=== PATIENT | female | born 1960 | race Caucasian/White ===

== ENCOUNTER 2017-10-07 17:41 | Inpatient (IN) | payer OTHER ==
[~2017-10-07] VITALS: Ht 175.3 cm; Wt 69.0 kg
[2017-10-07 17:50] VITALS: BP 151/72; PULSE 69; RESP 17; TEMP 97.9; O2SAT 95
[2017-10-07] MEDS ORDERED: depression PO (17:55)
[2017-10-07] MEDS ORDERED: ONDANSETRON HCL 4 MG/2 ML VIAL IV PUSH ONE ×2 (18:00→18:15)
[2017-10-07] MEDS ORDERED: TETANUS/DIPHTHERIA TOXOID ADULT 0.5 ML VIAL IM ONE (18:00)
[2017-10-07] MEDS ORDERED: MORPHINE SULFATE 2 MG/ML INJ IV PUSH ONE ×2 (18:00→19:30)
[2017-10-07] MEDS ORDERED: SODIUM CHLORIDE 0.9% FLUSH 10 ML FLUSH IVF PRN (18:00)
[2017-10-07 18:08] VITALS: BP 183/72; PULSE 64; RESP 15; O2SAT 97
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
[2017-10-07 18:18] LABS: AUTOMATED NEUTROPHIL # 3.5 TH/MM3 (1.8-7.7); BASOPHIL % 0.5 % (0.0-2.0); EOSINOPHIL # 0.1 TH/MM3 (0-0.4); EOSINOPHIL % 2.3 % (0.0-4.0); HEMATOCRIT 40.3 % (35.0-46.0); HEMOGLOBIN 13.6 GM/DL (11.6-15.3); LYMPH % 25.8 % (9.0-44.0); LYMPHOCYTE # 1.6 TH/MM3 (1.0-4.8); MEAN CORPUSCULAR HEMOGLOBIN 31.1 PG (27.0-34.0); MEAN CORPUSCULAR HGB CONC 33.8 % (32.0-36.0); MEAN PLATELET VOLUME 8.4 FL (7.0-11.0); MONO % 12.6 % (0.0-8.0); MONOCYTE # 0.8 TH/MM3 (0-0.9); NEUT % 58.8 % (16.0-70.0); PLATELET COUNT 205 TH/MM3 (150-450); RED BLOOD COUNT 4.39 MIL/MM3 (4.00-5.30); RED CELL DISTRIBUTION WIDTH 13.2 % (11.6-17.2)
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
[2017-10-07] MEDS ORDERED: KETOROLAC TROMETHAMINE 30 MG/ML (IVP) VIAL IV PUSH ONE (19:15)
[2017-10-07] MEDS ORDERED: LIDOCAINE 2%/EPINEPHrine 1:100,000 20ML MDV NERV BLOCK ONE (19:15)
[2017-10-07] MEDS ORDERED: oxyCODONE/ACETAMINOPHEN 5 MG/325 MG TAB PO ONE (19:30)
[2017-10-07 19:36] LABS: ALBUMIN 3.9 GM/DL (3.4-5.0); AST (GOT) 23 U/L (15-37); BICARBONATE 28.3 MEQ/L (21.0-32.0); BLOOD UREA NITROGEN 17 MG/DL (7-18); CALCIUM 8.5 MG/DL (8.5-10.1); CHLORIDE 106 MEQ/L (98-107); CREATININE 0.79 MG/DL (0.50-1.00); GLOMERULAR FILTRATION RATE 75 ML/MIN (>89); GLUCOSE,RANDOM 103 MG/DL (74-106); SODIUM (NA) 140 MEQ/L (136-145)
[2017-10-07 19:38] LABS: ALT (GPT) 32 U/L (10-53)
[2017-10-07 19:39] LABS: ALKALINE PHOSPHATASE 97 U/L (45-117); TOTAL BILIRUBIN ADULT 0.4 MG/DL (0.2-1.0); TOTAL PROTEIN 7.5 GM/DL (6.4-8.2)
[2017-10-07 19:42] VITALS: BP 143/98; PULSE 61; RESP 16; O2SAT 99
[2017-10-07 20:34] VITALS: BP 134/75; PULSE 80; RESP 18; O2SAT 99
[2017-10-07] MEDS ORDERED: ASPIRIN 81 MG CHEW TAB CHEW ONE (21:00)
[2017-10-07] MEDS ORDERED: NITROGLYCERIN 0.4 MG SL 25 TABS/BTL SL PRN (21:15)
[2017-10-07] MEDS ORDERED: ACETAMINOPHEN/HYDROcodone 325 MG/5 MG TAB PO PRN (21:15)
[2017-10-07] MEDS ORDERED: SODIUM CHLORIDE 0.9% FLUSH 10 ML FLUSH IV FLUSH PRN (21:15)
[2017-10-07] MEDS ORDERED: MORPHINE SULFATE 4 MG/ML INJ IV PUSH PRN (21:15)
[2017-10-07] MEDS ORDERED: 1/2 NS + KCL 20 MEQ INJ 1,000 ML IV SCH (22:15)
[2017-10-07 22:55] VITALS: BP 117/57; PULSE 59; RESP 16; TEMP 98.7; O2SAT 97
[2017-10-08 02:42] VITALS: BP 120/60; PULSE 60; RESP 16; TEMP 98.7; O2SAT 97
[2017-10-08 02:42] LABS: MAGNESIUM 2.1 MG/DL (1.5-2.5)
[2017-10-08 03:07] LABS: CHOLESTEROL/ HDL RATIO 1.94 RATIO; FOLATE 16.4 NG/ML (3.1-17.5); FREE T4 0.89 NG/DL (0.76-1.46); HDL CHOLESTEROL 106.7 MG/DL (40.0-60.0)
[2017-10-08 03:12] LABS: TROPONIN I 2.68 NG/ML (0.02-0.05)
[2017-10-08 03:52] VITALS: PULSE 54
[2017-10-08 08:00] VITALS: PULSE 56
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
[2017-10-08] MEDS ORDERED: SODIUM CHLORIDE 0.9% FLUSH 10 ML FLUSH IV FLUSH SCH (09:00)
[2017-10-08] MEDS ORDERED: ASPIRIN 325 MG TAB PO SCH (09:00)
[2017-10-08 09:22] LABS: BILIRUBIN, URINE NEG (NEG); BLOOD, URINE NEG (NEG); GLUCOSE,URINE NEG (NEG); KETONE, URINE 10 mg/dL (NEG); MUCUS URINE FEW /lpf (OCC); NITRITE,URINE NEG (NEG); URINE COLOR YELLOW (YELLW/STRAW); URINE LEUKOCYTE ESTERASE TRACE (NEG)
[2017-10-08] MEDS: ACETAMINOPHEN 325 MG TAB PO PRN ×2 (09:31→16:43)
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
[2017-10-08 10:20] LABS: TROPONIN I 1.88 NG/ML (0.02-0.05)
[2017-10-08 11:13] LABS: PROTHROMBIN TIME - PATIENT 10.5 SEC (9.8-11.6)
[2017-10-08] MEDS ORDERED: MIDAZOLAM HCL 2 MG/2 ML VIAL ONE (12:22)
[2017-10-08] MEDS ORDERED: HEPARIN SODIUM - IV 10,000 UNITS/10 ML VIAL ONE (12:22)
[2017-10-08] MEDS ORDERED: NITROGLYCERIN INJ 5 ML ONE (12:22)
[2017-10-08] MEDS ORDERED: HEPARIN-NS/PF INJ 1,000 ML ONE (12:22)
--- NOTE | 2017-10-08 12:57 | CATHPROC ---
[facility] Report Study Information Study Number Admission Scheduled Start Study Start [id number] Oct 07 2017 9:17PM 10/08/2017 Oct 08 2017 12:12PM [place] Service Cardiac Catheterization Admit Source Facility Department Other [facility] Attorney Physician and Clinical Staff Initial Orlin [employer] Driver Cecilia Munoz ,BSN Recorder Madeline Kerns,PLANNING SUPERVISOR Scrub Logan, Cherie,SURFACE ROOM SHOP OPTICIAN TECH2 Procedures Performed Procedure Location (Site) Vessel Name Coronary Angiograms LCA Left Coronary Coronary Angiograms RCA Right Coronary L Heart Cath Equipment Time Voice Writing Reporter Description Size Mfg Part Number Used/Scraped TRANSDUCER, TRUWAVE [id number] 12:37 HOLLIS STEPHENSON * Used W/STOCKCOCK *[id number] *[id number] *[id number] 12:37 [employer] INDUSTRIES PACK, CCL CUSTOM * Used *[id number] 12:37 Vertra SUPPORT, ARTERIAL ADULT 43026 *[id number] Used [id number] 12:37 [employer] PACER PEN, SKIN DUAL W/ RULER * Used *[id number] BAND, RADIAL COMPRESSION TR [id number] 12:45 [email or web address] 24CM Used SHORT 24 *[id number] SHEATH, FR6 RADIAL PRELUDE 12:37 [email or web address] FR 6 [id number] Used EASE 11CM [id number] 12:37 [email or web address] WIRE, EXCHANGE 260CM 3MMJ 260CM Used *[id number] 12:37 [employer]COMED OMNIPAQUE, 350 MG, 150ML 150ML [id number] Used [id number] 12:37 [employer],WARM AIR CCL * Used *[id number] History: Allergies Allergy Reaction No Known Allergies History: Risk Factors Family History of Hypertension Dyslipidemia Previous [place] Previous Heart Failure Premature CAD No No No No No Prior Valve Prior PCI Prior CABG Surgery No No No Cerebrovascular Peripheral Artery Chronic Lung On Dialysis Diabetes Disease Disease Disease No No No No No History: Stress Tests Stress or Imaging Studies Performed No History: Other Current Smoker No Labs Hgb (g/dl) Hct (%) WBC (l/cumm) Platelets (thousands) 11.60-17.00 35.00-51.00 4.00-11.00 150.00-450.00 13.6 40.3 6 205 Glucose (mg/dl) BUN (mg/dl) Creatinine (mg/dl) BUN:Creatinine (1:x) 74.00-106.00 7.00-18.00 0.50-1.30 10.00-20.00 103 17 0.7 24.3 Na (meq/l) K (meq/l) 136.00-145.00 3.50-5.10 140 3.6 Troponin I (ng/ml) CPK (u/l) 0.02-0.05 26.00-308.00 1.8 170 Medication Medication Total Dose (Bolus/Oral) Medication Total Dosage/Unit 1% XYLOCAINE 20 mL FENTANYL 50 mcg HEPARIN 3000 units NTG (IC) 200 mcg VERSED 2 mg Medications (Bolus/Oral) Medication Time Given Dosage/Unit Administered By Reason VERSED 10/08/2017 12:33:38 PM 2 mg Cecilia Munoz 2 mg VERSED given in lab by eCcilia Munoz BSN via Peripheral IV. FENTANYL 10/08/2017 12:34:44 PM 50 mcg Cecilia Munoz 50 mcg FENTANYL given in lab by Cecilia Munoz BSN via Peripheral IV. 1% XYLOCAINE 10/08/2017 12:35:40 PM 20 mL Orlin Lord 20 mL 1% XYLOCAINE given in lab by Orlin Lord in Right Radial via Subcutaneous. NTG (IC) 10/08/2017 12:37:30 PM 200 mcg Orlin Lord 200 mcg NTG (IC) given by Orlin Lord via Intra-coronary. HEPARIN 10/08/2017 12:38:42 PM 3000 units Cecilia Munzo 3000 units HEPARIN given by Cecilia Munoz BSN via Peripheral IV. Medication (Drip) Medication Time Given Dosage/Unit Concentration/Unit Diluent (ml) Solution IV Solutions 10/08/2017 12:21:51 PM 50 mL (IV) 500 NaCl .9 Patient arrived on IV Solutions via Peripheral IV. Pump/Drip Flow using NaCl .9. Initial Case Assessment Cardiovascular HR NIBP Chest Pain 62 142/68 0 Edema Present Skin color Skin None Normal Warm Dry Circulatory - Right Pulses Dorsalis Pedis Femoral Radial 2 3 3 Scale (0,1,2,3,4,d) Circulatory - Left Pulses Dorsalis Pedis Femoral Radial 2 3 3 Scale (0,1,2,3,4,d) Neurological State Oriented to time-place- Alert Moves all extremities person Respiration - General Respiration Rate SpO2 (%) (B/min) 20 98 Final Case Assessment Cardiovascular HR NIBP Chest Pain 62 112/61 0 Edema Present Skin color Skin None Normal Warm Dry Circulatory - Right Pulses Dorsalis Pedis Femoral Radial 2 3 3 Scale (0,1,2,3,4,d) Circulatory - Left Pulses Dorsalis Pedis Femoral Radial 2 3 3 Scale (0,1,2,3,4,d) Neurological State Oriented to time-place- Alert Moves all extremities person Respiration - General Respiration Rate SpO2 (%) (B/min) 20 98 Chronological Log Time Study Chronological Log 12:12:42 Patient arrived via Bed. 12:12:43 Patient Name, D.O.B, / Armband Verified By R.N. 12:12:44 Consent signed by the physician and the patient and verified by the [employer] staff. 12:13:18 Verbal Stimulation=2 Physical Stimulation=2 Airway=2 Respiration=2 TOTAL=8. (0=absent, 1=li mited, 2=present) 12:13:56 Presedation assessment performed by [employer] Attorney RN. 12:14:05 Allens test performed on the left radial and ulnar artery. 12:14:09 Patient has been NPO for More than 6Hrs. 12:14:12 Skin Breakdown- None Vitals capture started with the following parameters, Patient=Adult, Interval=5 min, Initial Pr qivxsa=059 mmHg, 12:20:24 Deflation Rate=5 mmHg, Cuff placed on Left Arm 12:21:01 HR=57 bpm, JVNI=643/68 mmhg, IjE7=882.0 %, Resp=12 B/min, Pain=0, Jacqui=10, Lopez=2 12:21:36 A # 20 IV was noted in the Antecubital (left). Grade = 0 12:21:51 Patient arrived on IV Solutions via Peripheral IV. Pump/Drip Flow using NaCl .9. Assessment: Initial Case, HR=62 BPM, XXGT=229/68 mmhg, Chest Pain=0, Edema=None, Color=Normal, Skin = Warm, Dry Right Pulses: Gerson Ped=2, Femoral=3, Radial=3 12:22:12 Left Pulses: Gerson Ped=2, Femoral=3, Radial=3 Neurological: State=Alert, Ox3, BARRIOS Respiration: Resp=20 B/min, SpO2=98 % 12:23:19 Right Radial and groin(s) prepped with 2% chlorhexidine, and draped after a 3 min. waiting time. 12:26:41 HR=58 bpm, JBYR=146/61 mmhg, PhX9=550.0 %, Resp=12 B/min, Pain=0, Jacqui=10, Lopez=2 12:28:37 MD paged 12:29:43 Pressure channel 1 zeroed. 12:29:53 Reference ECG taken 12:31:03 HR=65 bpm, IHQG=715/69 mmhg, SpO2=97.0 %, Resp=10 B/min, Pain=0, Jacqui=10, Lopez=2 12:32:53 MD arrived. 12:32:56 The Physician was on time. 12:33:38 2 mg VERSED given in lab by Cecilia Munoz BSN via Peripheral IV. 12:34:44 50 mcg FENTANYL given in lab by Cecilia Munoz BSN via Peripheral IV. Time Out. Correct patient, correct procedure, correct physician, power injector loaded, with co ntrast with surgical team 12:35:25 present. Time Out Concurred by MD and individual staff in procedure. 12:35:38 Case Start 12:35:40 20 mL 1% XYLOCAINE given in lab by Orlin Lord in Right Radial via Subcutaneous. 12:35:55 Access site was Radial Artery. 12:36:06 HR=62 bpm, BYGO=034/66 mmhg, SpO2=95 %, Resp=13 B/min, Pain=0, Jacqui=10, Lopez=2 A SHEATH, FR6 RADIAL PRELUDE EASE 11CM FR 6 was advanced into the Fem Art (right) using the Per cutaneous 12:36:22 technique. 12:37:30 200 mcg NTG (IC) given by Orlin Lord via Intra-coronary. 12:37:58 In the Radial (right) the SHEATH, FR6 RADIAL PRELUDE EASE 11CM FR [address] by Orlin Lord. A JR 5.0 INFINITI CATHETER FR 6 was advanced over a wire. OMNIPAQUE, 350 MG, 150ML 150ML was us ed for 12:38:33 injections. 12:38:42 3000 units HEPARIN given by Cecilia Munoz BSN via Peripheral IV. Recorded Pressure: Ao, HR=59, Condition=Condition 1 12:39:02 (Aorta) Ao 110/58/81 12:39:24 The RCA was injected and visualized at various angles. OMNIPAQUE, 350 MG, 150ML 150ML used . 12:41:03 HR=69 bpm, XCHW=960/60 mmhg, SpO2=95.0 %, Resp=9 B/min, Pain=0, Jacqui=10, Lopez=2 After removing the current catheter a JL 4.0 INFINITI CATHETER FR 6 was advanced over a WIRE, E XCHANGE 260CM 12:41:03 3MMJ 260CM. 12:42:09 The LCA was injected and visualized at various angles. OMNIPAQUE, 350 MG, 150ML 150ML used . 12:43:40 Catheter was removed 12:46:26 Case End 12:46:33 HR=62 bpm, OQPG=636/62 mmhg, SpO2=95 %, Resp=11 B/min, Pain=0, Jacqui=10, Lopez=2 12:49:47 No case complications noted. 12:49:51 Cine recording checked. Radial Compression Device Used. 12 mLs of air placed in BAND, RADIAL COMPRESSION TR SHORT 24 24 CM. Affected 12:49:57 hand 97 % O2 saturation. 12:50:44 A Left Heart Cath was performed. 12:51:01 Patient moved to stretcher 12:51:36 SUPC=466/61 mmhg, SpO2=96.0 %, Pain=0, Jacqui=10, Lopez=2 12:51:55 Vitals capture stopped. Assessment: Final Case, HR=62 BPM, PBXH=260/61 mmhg, Chest Pain=0, Edema=None, Color=Normal, Sk in = Warm, Dry Right Pulses: Gerson Ped=2, Femoral=3, Radial=3 12:52:11 Left Pulses: Gerson Ped=2, Femoral=3, Radial=3 Neurological: State=Alert, Ox3, BARRIOS Respiration: Resp=20 B/min, SpO2=98 % End Study - Contrast Media Used In Study Contrast Total Opened (mL) Total Used (mL) Total Wasted (mL) Omnipaque 20 20 0 End Study - Maximum Contrast Load Max Contrast Load (mL) 492.9 End Study - Radiation Exposure Fluoro Time (minutes) 2.2 End Study - Patient Disposition Complications Transferred To No [employer] Attorney Holding
--- NOTE | 2017-10-08 12:59 | MA ---
cc: SADE LANCE DATE 10/08/2017 PROCEDURE PERFORMED 1. Fluoroscopy with interpretation. 2. Coronary angiography. 3. Left heart catheterization. METHOD The risks, benefits and alternatives were discussed with the patient. The patient understood and consented to the procedure. PROCEDURE The patient was brought into the Catheterization Lab and placed on the catheterization table. The patient's right wrist was prepped and draped in sterile fashion. The right wrist was anesthetized with 2% lidocaine. The right radial artery was cannulated and a 6-Macedonian, 7-cm sheath was placed without difficulty. LEFT HEART CATHETERIZATION Intraventricular hemodynamics measured at 110/5 mmHg. CORONARY ANGIOGRAPHY 1. The left main coronary is angiographically normal. 2. The left anterior descending coronary and diagonal branch are angiographically normal. 3. The left circumflex is angiographically normal, gives rise to an obtuse marginal branch. 4. The right coronary is a dominant vessel giving rise to a posterior descending branch. The right coronary is angiographically normal. CONCLUSIONS 1. Angiographically normal coronary arteries. 2. Normal left-sided filling pressures. PLAN We will have to have a discussion with the patient and family to decide if any further workup as indicated. We will follow up on 2-D echocardiogram. MD ROSALINDA Kaba/MEGAN /12:43 PM /12:48 PM
--- NOTE | 2017-10-08 13:02 | ECHRPT ---
Indication: cp CONCLUSIONS Normal left ventricular size. The left ventricular systolic function is normal with an estimated ejection fraction in the range of 55-60%. Normal left ventricular size. The left ventricular systolic function is normal with an estimated ejection fraction in the range of 55-60%. Mild mitral valve regurgitation. No aortic valve regurgitation. There is mild tricuspid valve regurgitation. The estimated pulmonary arterial pressure is 47.2 mmHg. BP: / HR: Rhythm: MEASUREMENTS (Male / Female) Normal Values Technical Quality:Good 2D ECHO LV Diastolic Diameter PLAX 4.3 cm 4.2 - 5.9 / 3.9 - 5.3 cm LV Systolic Diameter PLAX 3.3 cm IVS Diastolic Thickness 1.0 cm 0.6 - 1.0 / 0.6 - 0.9 cm LVPW Diastolic Thickness 1.0 cm 0.6 - 1.0 / 0.6 - 0.9 cm LV Relative Wall Thickness 0.5 RV Internal Dim ED PLAX 2.9 cm M-MODE Aortic Root Diameter MM 2.6 cm LA Systolic Diameter MM 3.4 cm LA Ao Ratio MM 1.3 AV Cusp Separation MM 2.1 cm DOPPLER Mitral E Point Velocity 71.6 cm/s Mitral A Point Velocity 70.6 cm/s Mitral E to A Ratio 1.0 LV E' Lateral Velocity 10.2 cm/s Mitral E to LV E' Lateral Ratio 7.0 LV E' Septal Velocity 7.4 cm/s Mitral E to LV E' Septal Ratio 9.7 TR Peak Velocity 305.0 cm/s TR Peak Gradient 37.2 mmHg Right Atrial Pressure 10.0 mmHg Pulmonary Artery Systolic Pressu 47.2 mmHg Right Ventricular Systolic Press 47.2 mmHg FINDINGS LEFT VENTRICLE Normal left ventricular size. The left ventricular systolic function is normal with an estimated ejection fraction in the range of 55-60%. RIGHT VENTRICLE Normal right ventricular size and systolic function. LEFT ATRIUM The left atrial size is normal. RIGHT ATRIUM The right atrial size is normal. ATRIAL SEPTUM Normal atrial septal thickness without atrial level shunting by limited color doppler interrogation. AORTA The aortic root and proximal ascending aorta are normal in size on limited imaging. MITRAL VALVE Structurally normal mitral valve. Mild mitral valve regurgitation. AORTIC VALVE Trileaflet aortic valve. No aortic valve regurgitation. TRICUSPID VALVE Structurally normal tricuspid valve. There is mild tricuspid valve regurgitation. The estimated pulmonary arterial pressure is 47.2 mmHg. PULMONARY VALVE No pulmonary valve regurgitation or stenosis. VESSELS The inferior vena cava is normal in size. PERICARDIUM No pericardial effusion. Orlin Lord MD, FACC (Electronically Signed) Final Date:08 October 2017 13:02
[2017-10-08] MEDS ORDERED: IOHEXOL 350 MG/ML 50 ML BTL (for Cath Lab) OTHER ONE (14:37)
--- NOTE | 2017-10-08 15:08 | EKG ---
Date Performed: 10/08/2017 Time Performed: 02:32:57 PTAGE: 57 years EKG: SINUS BRADYCARDIA POSSIBLE RIGHT VENTRICULAR CONDUCTION DELAYpt Since previous tracing, no significant change noted BORDERLINE ECG PREVIOUS TRACING : 10/07/2017 20.33 DOCTOR: Jatin Pradhan Interpretating Date/Time 10/08/2017 15:07:47
--- NOTE | 2017-10-08 15:41 | EKG ---
Date Performed: 10/07/2017 Time Performed: 20:33:18 PTAGE: 57 years EKG: SINUS BRADYCARDIA POSSIBLE RIGHT VENTRICULAR CONDUCTION DELAY BORDERLINE ECG NO PREVIOUS TRACING DOCTOR: aJtin Pradhan Interpretating Date/Time 10/08/2017 15:39:32
[2017-10-08] MEDS ORDERED: TYLE325T PO (16:49)
--- NOTE | 2017-10-09 14:42 | EKG ---
Date Performed: 10/08/2017 Time Performed: 10:07:06 PTAGE: 57 years EKG: SINUS BRADYCARDIA POSSIBLE RIGHT VENTRICULAR CONDUCTION DELAY BORDERLINE ECG Since PREVIOUS TRACING , no significant change noted PREVIOUS TRACIN10/08/2017 02.32 DOCTOR: Arabelal Herrera Interpretating Date/Time 10/09/2017 14:41:14
== END 2017-10-08 17:45 | disposition home or self-care (01) | DRG 287 ==
LOC: NEPE 17:41 → NEDA 21:17 → NEPHCDU 22:35 → HCIS 10-08 11:36 → OBSVTOIN 10-08 13:52 → HCIS 10-08 17:45
PROVIDERS: ADMIT Hospitalist; ATTEND Hospitalist
PROC: 0HQ1XZZ Repair Face Skin, External Approach (ICD-10-PCS; 2017-10-07)
PROC: 4A023N7 Measurement of Cardiac Sampling and Pressure, Left Heart, Percutaneous Approach (ICD-10-PCS; 2017-10-08)
PROC: B2111ZZ Fluoroscopy of Multiple Coronary Arteries using Low Osmolar Contrast (ICD-10-PCS; principal; 2017-10-08 11:00)
DX: R55 Syncope and collapse (principal); S01.111A Laceration without foreign body of right eyelid and periocular area, initial encounter; S01.81XA Laceration without foreign body of other part of head, initial encounter; R74.8 Abnormal levels of other serum enzymes; X58.XXXA Exposure to other specified factors, initial encounter; F32.9 Major depressive disorder, single episode, unspecified
CPT/HCPCS: 12011; 70450; 70486; 71045; 72125; 80053; 80061; 80307; 81001; 82140; 82550; 82552; 82607; 82746; 83735; 84439; 84443; 84484; 85025; 85610; 85730; 86592; 93005; 93306; 93458; 93880; 96374; 96375; 99152; C1769; C1893; G0378; J1644; J1885; J2250; J2270; J2405; J3010; Q9967